=== PATIENT | male | born 1980 | race Native Hawaiian/Other Pacific Islander ===

== ENCOUNTER 2020-11-25 11:07 | Inpatient (IN) ==
[2020-11-25] MEDS ORDERED: CARVEDILOL 6.25 MG TABLET PO ONE (12:14)
[2020-11-25] MEDS ORDERED: LOSARTAN 50 MG TABLET PO ONE (12:15)
[2020-11-25] MEDS ORDERED: CHLORTHALIDONE 25 MG TABLET PO ONE (12:15)
--- NOTE | 2020-11-25 12:20 | Emergency Department Note ---
HPI General Chief complaint: Blood Pressure Problem Stated complaint: HTN/Edema Time Seen by Provider: 11/25/20 11:32 Source: patient Mode of arrival: ambulatory Limitations: no limitations History of Present Illness HPI Narrative: Narrative: Presents to room T2 for evaluation of lower extremity swelling and elevated blood pressure. The patient reports a past medical history of hypertension. He states he is recently moved to the area from [place]. He has a biomedical scientist at [facility] but has not seen them since last year. He reports that he has been out of his medication for blood pressure over 1 week. He states since that time his lower extremities have swollen bilaterally. He denies any pain. He denies any shortness of breath or chest discomfort. He denies any exertional dyspnea. The patient reports that he has had this happen once in the past when he ran out of his antihypertensive medication. He denies any headache. No visual changes. No hematuria. No focal motor weakness or sensory numbness. Related Data Home Medications Medication Instructions Recorded Confirmed aspirin 81 mg PO DAILY 11/25/20 11/25/20 atorvastatin 40 mg PO HS 11/25/20 11/25/20 carvedilol 6.25 mg PO BID 11/25/20 11/25/20 chlorthalidone 50 mg PO DAILY 11/25/20 11/25/20 losartan 50 mg PO DAILY 11/25/20 11/25/20 Allergies Allergy/AdvReac Type Severity Reaction Status Date / Time lisinopril AdvReac Difficulty Verified 11/25/20 11:13 Breathing Review of Systems ROS ROS Narrative: Narrative: All systems ED: reviewed and negative except as stated. [facility] Narrative Patient History Narrative: Narrative: Medical/Surgical/Family History All Active Problems (Updated 11/25/20 @ 16:47 by Paddy Jay MD) Hypertensive CHF (Acute) Edema of both lower extremities due to peripheral venous insufficiency (Acute) Cellulitis (Acute) Social History Smoking Status: Never smoker Exam Narrative Narrative: Narrative: General Limitations: no limitations General appearance: Present alert and in no apparent distress Head Head: Present atraumatic, normocephalic and normal inspection Eye Eye: Present normal appearance and EOMI; Absent conjunctival injection ENT ENT: Present normal exam and mucous membranes moist Neck Neck: Present normal inspection and trachea midline Respiratory Respiratory: Present normal lung sounds bilaterally; Absent respiratory distress Cardiovascular Cardiovascular: Present regular rate, normal rhythm and normal heart sounds Adbominal Abdominal: Present soft; Absent distention, tenderness, guarding and rebound Extremities Extremities: Present pedal edema and other (There is mild diffuse intermittent areas of erythema which may represent localized cellulitis versus effects of edema); Absent tenderness Back Back: Present normal inspection; Absent tenderness Neurological Neurological: Present alert, oriented X3 and CN II-XII intact; Absent motor sens ory deficit Psychiatric Psychiatric: Present normal affect and normal mood Skin Skin: Present warm (WNL) and dry; Absent rash Course Vital Signs Vital signs: Vital Signs Temperature 97.9 F 11/25/20 11:09 Pulse Rate 111 H 11/25/20 11:09 Respiratory Rate 22 11/25/20 11:09 Blood Pressure 216/151 11/25/20 11:09 Pulse Oximetry (%) 95 11/25/20 11:09 Temperature 97.9 F 11/25/20 11:09 Pulse Rate 79 11/25/20 18:02 Respiratory Rate 23 H 11/25/20 18:02 Blood Pressure 155/102 11/25/20 18:02 Pulse Oximetry (%) 97 11/25/20 18:02 [facility] Narrative Medical decision making narrative: Narrative: The patient presents for evaluation of lower extremity and scrotal swelling after being out of his antihypertensive medication for approximately a week and a half. The patient denies any chest pain or shortness of breath. On presentation the patient's blood pressure is extremely elevated but he is absent any symptoms suggestive of endorgan damage. The patient was given doses of his documented antihypertensive medication. Unfortunately his blood pressure did not significantly improve. The patient did have labs which included a D-dimer which was elevated. Ultrasounds of his bilateral lower extremity showed no evidence of DVT. The patient does have a slightly elevated creatinine at 1.7. It is unknown what his is and the patient does not know. The patient was given a dose of IV labetalol followed by a dose of IV Lasix and his blood pressure did significantly improve. The patient does have diffuse scattered areas of erythema on his lower extrem ities which may represent stasis dermatitis or cellulitis. The patient did receive a dose of IV antibiotics after blood cultures. I did discuss the case with Dr. Chapa, the hospitalist. He is requested a troponin which was normal. The patient's BNP was obtained and noted to be markedly elevated. Patient's chest x-ray does show moderate CHF. The EKG shows no evidence of acute injury or ischemia. As the patient's blood pressure has improved I do not believe he requires additional IV medication such as nicardipine at this time. The patient will benefit from admission for continued diuresis as well as further evaluation and treatment of his congestive heart failure and cellulitis. Lab Data Lab results reviewed: Yes I reviewed the patient's lab results. Result diagrams: 11/25/20 12:25 11/25/20 12:13 Labs: Lab Results 11/25/20 11/25/20 11/25/20 Range/Units 12:13 12:13 12:25 WBC 11.5 H (4.5-11.0) K/mcL RBC 5.09 (4.50-5.90) M/mcL Hgb 11.9 L (13.5-16.5) g/dL Hct 39.6 L (41.0-55.0) % MCV 77.8 L (80.0-100.0) fL MCH 23.4 L (26.0-34.0) pg MCHC 30.1 L (31.0-36.0) g/dL RDW 15.9 H (11.5-14.5) % Plt Count 363 (140-440) K/mcL MPV 9.5 (7.4-10.4) fL Neut % (Auto) 76.5 (38.0-78.0) % Lymph % (Auto) 12.5 L (15.0-49.0) % [place] % (Auto) 7.5 (1.0-12.0) % Eos % (Auto) 2.4 (0.0-7.0) % Baso % (Auto) 1.1 (0.0-2.0) % Lymph # (Auto) 1.44 L (1.50-4.80) K/mcL [place] # (Auto) 0.87 (0.10-0.90) K/mcL Eos # (Auto) 0.28 (0.00-0.70) K/mcL Baso # (Auto) 0.13 (0.00-0.20) K/mcL Absolute Neutrophils 8.82 H (1.80-8.00) K/mcL D-Dimer 3.80 H (0.27-0.50) ug/mL VBG Lactic Acid (0.5-2.0) mmol/L Sodium 136 (133-145) mmol/L Potassium 3.8 (3.3-5.1) mmol/L Chloride 100 (96-108) mmol/L Carbon Dioxide 26 (22-30) mmol/L Anion Gap 10.0 (8.0-16.0) BUN 17 (6-20) mg/dL Creatinine 1.7 H (0.7-1.2) mg/dL GFR Calculation 49 Glucose 122 H (70-105) mg/dL Calcium 8.8 (8.6-10.4) mg/dL Total Bilirubin 0.6 (0.1-1.0) mg/dL AST 39 (<40) U/L ALT 39 (<40) U/L Alkaline Phosphatase 108 (39-117) U/L Troponin T (<0.03) ng/mL NT-Pro-B Natriuret Pep (<125.0) pg/mL Total Protein 6.1 (5.9-8.4) gm/dL Albumin 3.2 (3.2-5.2) gm/dL Globulin 2.9 (2.2-3.7) gm/dL Albumin/Globulin Ratio 1.1 (1.0-2.3) TSH (0.27-5.01) uIU/mL 11/25/20 11/25/20 11/25/20 Range/Units 14:34 14:43 14:43 WBC (4.5-11.0) K/mcL RBC (4.50-5.90) M/mcL Hgb (13.5-16.5) g/dL Hct (41.0-55.0) % MCV (80.0-100.0) fL MCH (26.0-34.0) pg MCHC (31.0-36.0) g/dL RDW (11.5-14.5) % Plt Count (140-440) K/mcL MPV (7.4-10.4) fL Neut % (Auto) (38.0-78.0) % Lymph % (Auto) (15.0-49.0) % [place] % (Auto) (1.0-12.0) % Eos % (Auto) (0.0-7.0) % Baso % (Auto) (0.0-2.0) % Lymph # (Auto) (1.50-4.80) K/mcL [place] # (Auto) (0.10-0.90) K/mcL Eos # (Auto) (0.00-0.70) K/mcL Baso # (Auto) (0.00-0.20) K/mcL Absolute Neutrophils (1.80-8.00) K/mcL D-Dimer (0.27-0.50) ug/mL VBG Lactic Acid (0.5-2.0) mmol/L Sodium (133-145) mmol/L Potassium (3.3-5.1) mmol/L Chloride (96-108) mmol/L Carbon Dioxide (22-30) mmol/L Anion Gap (8.0-16.0) BUN (6-20) mg/dL Creatinine (0.7-1.2) mg/dL GFR Calculation Glucose (70-105) mg/dL Calcium (8.6-10.4) mg/dL Total Bilirubin (0.1-1.0) mg/dL AST (<40) U/L ALT (<40) U/L Alkaline Phosphatase (39-117) U/L Troponin T 0.02 (<0.03) ng/mL NT-Pro-B Natriuret Pep 3002.0 H (<125.0) pg/mL Total Protein (5.9-8.4) gm/dL Albumin (3.2-5.2) gm/dL Globulin (2.2-3.7) gm/dL Albumin/Globulin Ratio (1.0-2.3) TSH 2.66 (0.27-5.01) uIU/mL 11/25/20 Range/Units 15:09 WBC (4.5-11.0) K/mcL RBC (4.50-5.90) M/mcL Hgb (13.5-16.5) g/dL Hct (41.0-55.0) % MCV (80.0-100.0) fL MCH (26.0-34.0) pg MCHC (31.0-36.0) g/dL RDW (11.5-14.5) % Plt Count (140-440) K/mcL MPV (7.4-10.4) fL Neut % (Auto) (38.0-78.0) % Lymph % (Auto) (15.0-49.0) % [place] % (Auto) (1.0-12.0) % Eos % (Auto) (0.0-7.0) % Baso % (Auto) (0.0-2.0) % Lymph # (Auto) (1.50-4.80) K/mcL [place] # (Auto) (0.10-0.90) K/mcL Eos # (Auto) (0.00-0.70) K/mcL Baso # (Auto) (0.00-0.20) K/mcL Absolute Neutrophils (1.80-8.00) K/mcL D-Dimer (0.27-0.50) ug/mL VBG Lactic Acid 1.2 (0.5-2.0) mmol/L Sodium (133-145) mmol/L Potassium (3.3-5.1) mmol/L Chloride (96-108) mmol/L Carbon Dioxide (22-30) mmol/L Anion Gap (8.0-16.0) BUN (6-20) mg/dL Creatinine (0.7-1.2) mg/dL GFR Calculation Glucose (70-105) mg/dL Calcium (8.6-10.4) mg/dL Total Bilirubin (0.1-1.0) mg/dL AST (<40) U/L ALT (<40) U/L Alkaline Phosphatase (39-117) U/L Troponin T (<0.03) ng/mL NT-Pro-B Natriuret Pep (<125.0) pg/mL Total Protein (5.9-8.4) gm/dL Albumin (3.2-5.2) gm/dL Globulin (2.2-3.7) gm/dL Albumin/Globulin Ratio (1.0-2.3) TSH (0.27-5.01) uIU/mL ED POC Tests ED POC Tests: KEANU - Influenza A Negative KEANU - Influenza B Negative KEANU - SARS Antigen Negative Radiology Data Radiology results reviewed: Yes I reviewed the patient's radiology results. EKG Data EKG #1: EKG attestation: Yes I reviewed and interpreted this EKG. EKG results narrative: Normal sinus rhythm rate 73, normal ST segments, normal QRS, no ectopy CC TIME Critical Care Time Total Critical Care Time: 30 Attestation: Total critical heart Discharge Plan Patient/Caregiver Discharge Instructions Pt seen by POLE TRUCK DRIVER/PA only: No Clinical Impression: Hypertensive CHF, Edema of both lower extremities due to peripheral venous insufficiency, Cellulitis Patient Disposition: Xfer As Inpt ([facility]) Condition: Good Discharge Date/Time: 11/25/20 18:36 Discharge Location: [facility]
[2020-11-25 13:04] LABS: Basophils # (Auto) 0.13 K/mcL (0.00-0.20); Basophils % (Auto) 1.1 % (0.0-2.0); Eosinophils # (Auto) 0.28 K/mcL (0.00-0.70); Eosinophils % (Auto) 2.4 % (0.0-7.0); Hematocrit 39.6 % (41.0-55.0); Hemoglobin 11.9 g/dL (13.5-16.5); Lymphocytes # (Auto) 1.44 K/mcL (1.50-4.80); Lymphocytes % (Auto) 12.5 % (15.0-49.0); Mean Cell Volume 77.8 fL (80.0-100.0); Mean Corpuscular HGB Conc 30.1 g/dL (31.0-36.0); Mean Platelet Volume 9.5 fL (7.4-10.4); Monocytes # (Auto) 0.87 K/mcL (0.10-0.90); Monocytes % (Auto) 7.5 % (1.0-12.0); Neutrophils % (Auto) 76.5 % (38.0-78.0); Platelet Count 363 K/mcL (140-440); RBC 5.09 M/mcL (4.50-5.90); Red Cell Distribution Width 15.9 % (11.5-14.5); WBC 11.5 K/mcL (4.5-11.0)
[2020-11-25 13:29] LABS: ALT/SGPT 39 U/L (<40); AST/SGOT 39 U/L (<40); Albumin 3.2 gm/dL (3.2-5.2); Albumin/Globulin Ratio 1.1 (1.0-2.3); Alkaline Phosphatase 108 U/L (39-117); Bilirubin,Total 0.6 mg/dL (0.1-1.0); Blood Urea Nitrogen 17 mg/dL (6-20); Calcium 8.8 mg/dL (8.6-10.4); Carbon Dioxide 26 mmol/L (22-30); Chloride 100 mmol/L (96-108); Globulin 2.9 gm/dL (2.2-3.7); Glomerular Filtration Rate 49; Glucose 122 mg/dL (70-105)
[2020-11-25] MEDS ORDERED: LABETALOL 5 MG/ML ML IV ONE (14:17)
[2020-11-25] MEDS ORDERED: FUROSEMIDE 40 MG/4 ML VIAL IV ONE (14:19)
[2020-11-25] MEDS ORDERED: cefTRIAXone 1 GM VIAL IV ONE (14:31)
--- NOTE | 2020-11-25 14:38 | Ultrasound Report ---
CLINICAL INFORMATION: Bilateral leg swelling COMPARISON: None. FINDINGS: The entire deep venous system, both lower extremities, including the common femoral, superficial femoral, popliteal and paired trifurcation calf veins are easily compressible and show normal venous blood flow on color and spectral Doppler. No evidence of thrombus IMPRESSION: Negative exam - no evidence of deep vein thrombosis in both lower extremities. Interpreted and Authenticated by: Villa Mendoza 11/25/20
--- NOTE | 2020-11-25 15:08 | XRay Report ---
CLINICAL INFORMATION: htn urgency COMPARISON: None. FINDINGS: The heart is moderately enlarged. Mediastinum is unremarkable. Pulmonary vessels are mildly distended. There is mild patchy airspace disease in both mid and lower lungs which either infiltrate or edema. No effusion IMPRESSION: Mild CHF or volume overload. Consider BNP correlation Interpreted and Authenticated by: Villa Mendoza 11/25/20
--- NOTE | 2020-11-25 17:39 | Internal Med History&Physical ---
HPI History of Present Illness Patient information: Note initiated : 11/25/20 at 5:38 pm Service Date, if different from initiated Date: [] Patient: Antoine Chavez 40 y/o M admitted on for HTN/Edema. Chief Complaint: Worsening edema History of present illness: Mr. Chavez is a 40 year old M with a history of hypertension, hypercholesterolemia, congestive heart failure who presents to the ED with increasing lower extremity edema mild dyspnea and abdominal bloating. Patient has a history of hypertension and heart failure. He was hospitalized at [facility] in [place] in 2019, presented with blood pressures in the 190s/160s. He was seen by clipping marker and have blood pressure medications titrated. He is currently on carvedilol, losartan and chlorthalidone. He moved to the [facility] from [place] recently, has not established [facility]. He ran out of meds about 2 weeks ago. He apparently had not called his clipping marker office for refill, though he tells me he believes the clipping marker would gladly have filled them. He presents with about 1 week of worsening lower extremity edema, mild dyspnea and his abdomen feeling tight and complaining of early satiety. He is now sleeping with his head of bed elevated, because he gets a pounding in his head when he lay supine when his blood pressure is not controlled. In the emergency department, initial blood pressure was 216/151. He received his usual home medications, subsequently received labetalol with pressures dropping into the 140-150/100s. Chest radiograph shows pulmonary congestion, he has significant lower extremity and scrotal edema as well as anasarca to the abdomen. Troponin is negative, BNP is 3000. EKG shows no injury pattern. Is being admitted for treatment of hypertensive urgency and acute congestive heart failure. Patient denies any headache, vision changes, blurry vision. He has had a mild sore throat a few days ago, that is mostly resolved. Mild dyspnea, no cough or sputum production. No chest pain/tightness/squeezing/pressure. Lower extremity edema as noted above. Orthopnea as noted above. When he bends over over the last week or so he gets nauseated, which is new. No emesis, no abdominal pain, no diarrhea. No dysuria, he continues to have good urine output. No joint swelling. No bruising. He has chronic rash on the back of his hands which is worsened recently. No heat or cold intolerance. Review of Systems All systems: reviewed and no additional remarkable complaints except as stated PFSH PFSH All Active Problems (Updated 11/25/20 @ 21:43 by Cathryn Patricio MD) Hypertensive CHF (Acute) Edema of both lower extremities due to peripheral venous insufficiency (Acute) Cellulitis (Acute) Medical History (Updated 11/25/20 @ 21:43 by Cathryn Patricio MD) Hypercholesterolemia Hypertension Surgical History (Updated 11/25/20 @ 21:43 by Cathryn Patricio MD) No significant past surgical history Family History (Updated 11/25/20 @ 21:46 by Cathryn Patricio MD) Mother Hypertension Coronary artery disease of myocardial infarction Father Coronary artery disease Social History (Updated 11/25/20 @ 21:46 by Cathryn Patricio MD) smoking status: Never smoker alcohol intake frequency: does not drink MEDS/ALLERGIES Home Medications and Allergies Home Medications Medication Instructions Recorded Confirmed Type aspirin 81 mg PO DAILY 11/25/20 11/25/20 History atorvastatin 40 mg PO HS 11/25/20 11/25/20 History carvedilol 6.25 mg PO BID 11/25/20 11/25/20 History chlorthalidone 50 mg PO DAILY 11/25/20 11/25/20 History losartan 50 mg PO DAILY 11/25/20 11/25/20 History Allergies Allergy/AdvReac Type Severity Reaction Status Date / Time lisinopril AdvReac Difficulty Verified 11/25/20 11:13 Breathing EXAM Constitutional Vitals: Temp Pulse Resp BP Pulse Ox 97.9 F 81 20 144/94 98 11/25/20 11:09 11/25/20 16:42 11/25/20 16:42 11/25/20 16:42 11/25/20 16:42 GENERAL: Alert, oriented, in no acute distress. Cooperative, appears stated age. HEENT: Atraumatic, pupils equal at 3 mm, conjunctiva clear, no scleral icterus. Hearing grossly intact. Oropharynx with moist mucous membranes, tongue midline. NECK: Supple without meningismus RESPIRATORY: Faint bibasilar crackles, otherwise clear, no wheezes, respiratory effort is unlabored. CARDIOVASCULAR: Regular rate and rhythm, S4 gallop present, no murmur. 4+ peripheral edema with anasarca to the lower abdominal wall. Neck veins are not able to be viewed due to body habitus. Carotid pulses 2+ without bruit. GI: Abdomen obese soft, nontender, no guarding or rebound. No bruits appreciated. Bowel sounds are present. : Scrotal edema. MUSCULOSKELETAL: No joint erythema or swelling, normal range of motion in all extremities. SKIN: Scaly plaques on the dorsum of the proximal fingers and hand bilaterally. Areas of erythema, some with weeping in the distal bilateral lower extremities. NEUROLOGIC: Cranial nerves II through XII grossly intact. Muscle mass normal. Strength 5/5 in the upper and lower extremities. Sensation intact to light touch bilaterally. PSYCHIATRIC: Alert, oriented x3, normal mood and affect, normal insight. DATA Data Completed and Pending Labs: Labs from last 24 hours 11/25/20 11/25/20 11/25/20 15:09 14:43 14:34 WBC RBC Hgb Hct MCV MCH MCHC RDW Plt Count MPV Neut % (Auto) Lymph % (Auto) [place] % (Auto) Eos % (Auto) Baso % (Auto) Lymph # (Auto) [place] # (Auto) Eos # (Auto) Baso # (Auto) Absolute Neutrophils D-Dimer VBG Lactic Acid 1.2 Sodium Potassium Chloride Carbon Dioxide Anion Gap BUN Creatinine GFR Calculation Glucose Calcium Total Bilirubin AST ALT Alkaline Phosphatase Troponin T 0.02 NT-Pro-B Natriuret Pep 3002.0 H Total Protein Albumin Globulin Albumin/Globulin Ratio 11/25/20 11/25/20 11/25/20 12:25 12:13 12:13 WBC 11.5 H RBC 5.09 Hgb 11.9 L Hct 39.6 L MCV 77.8 L MCH 23.4 L MCHC 30.1 L RDW 15.9 H Plt Count 363 MPV 9.5 Neut % (Auto) 76.5 Lymph % (Auto) 12.5 L [place] % (Auto) 7.5 Eos % (Auto) 2.4 Baso % (Auto) 1.1 Lymph # (Auto) 1.44 L [place] # (Auto) 0.87 Eos # (Auto) 0.28 Baso # (Auto) 0.13 Absolute Neutrophils 8.82 H D-Dimer 3.80 H VBG Lactic Acid Sodium 136 Potassium 3.8 Chloride 100 Carbon Dioxide 26 Anion Gap 10.0 BUN 17 Creatinine 1.7 H GFR Calculation 49 Glucose 122 H Calcium 8.8 Total Bilirubin 0.6 AST 39 ALT 39 Alkaline Phosphatase 108 Troponin T NT-Pro-B Natriuret Pep Total Protein 6.1 Albumin 3.2 Globulin 2.9 Albumin/Globulin Ratio 1.1 Impressions Impressions: EKG: Sinus rhythm at [address] changes Imaging and Cardiology Chest x-ray: Status: image reviewed by me Additional comments: Mild CHF or volume overload. Consider BNP correlation Venous US: Additional comments: Impression: Negative examno evidence of deep vein thrombosis in both lower extremities. A/P Narrative A/P Narrative: 40-year-old male with a history of hypertensive emergency in 2019, which point he was diagnosed with high blood pressure presents with increasing dyspnea and edema after being out of medications for 2 weeks. #Hypertensive urgency: Patient presents with markedly elevated blood pressure. After initial dose of his home meds plus labetalol, that has improved. -Etiology appears to be not refilling his medications and not taking them for 2 weeks -Patient has congestive heart failure, likely related to blood pressure, no evidence of ACS, stroke -No old records, unclear what baseline creatinine is, could have some renal insufficiency from hypertensive urgency #Acute congestive heart failure: Likely hypertension related heart failure. -Suspect he may have LVH with an S4 to auscultation. #Hypercholesterolemia: On atorvastatin #Chronic lower extremity edema: On aspirin for prophylaxis against VTE Plan: * Inpatient admission * Continue home meds * Labetalol as needed for hypertension * We will accept blood pressure 160/100 overnight as he has had prolonged hypertension * Check urinalysis for evidence of active sediment * Check urine drug screen for evidence of stimulants * Diuresis * Follow intake and output * Follow renal function * Check echocardiogram * Obtain records from [facility] Prophylaxis: Lovenox CODE STATUS: Full code
[2020-11-25] MEDS ORDERED: ACETAMINOPHEN 325 MG TABLET PO PRN (19:14)
[2020-11-25] MEDS ORDERED: LACTULOSE 20 GM/30 ML ORAL.SOL PO PRN (19:14)
[2020-11-25] MEDS ORDERED: SENNOSIDES 1 TABLET PO PRN (19:14)
[2020-11-25] MEDS ORDERED: ONDANSETRON 4 MG/2 ML VIAL IV PRN (19:14)
[2020-11-25 20:07] LABS: Thyroid Stimulating Hormone 2.66 uIU/mL (0.27-5.01)
[2020-11-25] MEDS: LABETALOL 5 MG/ML ML IV PRN ×2 (20:26→23:18)
[2020-11-25] MEDS: 0.9 % SODIUM CHLORIDE 10 ML SYRINGE IV SCH (21:25)
[2020-11-25] MEDS: ATORVASTATIN 40 MG TABLET PO SCH (21:25)
[2020-11-25 22:23] LABS: Amphetamine Screen,Urine None detected; Barbiturate Screen,Urine None detected; Benzodiazepines Screen,Urine None detected; Cannabinoid Screen,Urine None detected; Cocaine Screen,Urine None detected; Opiate Screen,Urine None detected; Oxycodone, Urine Screen None detected; Phencyclidine Screen,Urine None detected
[2020-11-25 22:29] LABS: Appearance,Urine CLEAR (Clear); Bilirubin,Urine Negative (Negative); Color,Urine STRAW; Culture Indicated,Urine No; Glucose,Urine (UA) Negative (Negative); Ketones,Urine Negative (Negative); Leukocyte Esterase,Urine Negative /ug (Negative); Mucus,Urine FEW /hpf; Nitrate,Urine Negative (Negative); Protein,Urine 100 mg/dL (Negative); Specific Gravity,Urine 1.006 (1.000-1.035); Urine Blood Negative (Negative); Urine RBC 1 /hpf (0-3); Urine Squamous Epithelial Cell 0 /hpf (0-4); Urine WBC 1 /hpf (0-4); Urobilinogen,Urine Negative
[2020-11-26] MEDS: 0.9 % SODIUM CHLORIDE 10 ML SYRINGE IV SCH ×3 (06:13→21:24)
[2020-11-26 07:59] LABS: Blood Urea Nitrogen 17 mg/dL (6-20); Calcium 8.8 mg/dL (8.6-10.4); Carbon Dioxide 26 mmol/L (22-30); Chloride 100 mmol/L (96-108); Glomerular Filtration Rate 53; Glucose 73 mg/dL (70-105)
[2020-11-26] MEDS: FUROSEMIDE 40 MG/4 ML VIAL IV SCH ×2 (08:20→16:58)
[2020-11-26] MEDS: LABETALOL 5 MG/ML ML IV PRN ×2 (08:20→14:46)
[2020-11-26] MEDS: ENOXAPARIN 40 MG/0.4 ML SYRINGE SQ SCH (08:20)
[2020-11-26] MEDS: ASPIRIN 81 MG TAB.CHEW PO SCH (08:21)
[2020-11-26] MEDS: LOSARTAN 50 MG TABLET PO SCH (10:47)
[2020-11-26] MEDS: CARVEDILOL 6.25 MG TABLET PO SCH ×2 (10:47→16:59)
--- NOTE | 2020-11-26 11:09 | Internal Med Progress Note ---
SUBJECTIVE Subjective Patient information: Note initiated : 11/26/20 at 11:05 am Service Date, if different from initiated Date: [] Patient: Antoine Chavez 40 y/o M admitted on 11/25/20 for HTN/Edema. Chief Complaint: [] Interval history: 11/25 Mr. Chavez is a 40 year old M with a history of hypertension, hypercholesterolemia, congestive heart failure who presents to the ED with increasing lower extremity edema mild dyspnea and abdominal bloating. Patient has a history of hypertension and heart failure. He was hospitalized at [facility] in [place] in 2018, presented with blood pressures in the 190s/160s. He was seen by rail director and have blood pressure medications titrated. He is currently on carvedilol, losartan and chlorthalidone. He moved to the [facility] from [place] recently, has not established care here. He ran out of meds about 2 weeks ago. He apparently had not called his rail director office for refill, though he tells me he believes the rail director would gladly have filled them. He presents with about 1 week of worsening lower extremity edema, mild dyspnea and his abdomen feeling tight and complaining of early satiety. He is now sleeping with his head of bed elevated, because he gets a pounding in his head when he lay supine when his blood pressure is not controlled. In the emergency department, initial blood pressure was 216/151. He received his usual home medications, subsequently received labetalol with pressures dropping into the 140-150/100s. Chest radiograph shows pulmonary congestion, he has significant lower extremity and scrotal edema as well as anasarca to the abdomen. Troponin is negative, BNP is 3000. EKG shows no injury pattern. Is being admitted for treatment of hypertensive urgency and acute congestive heart failure. 11/26 Feeling improved today, dyspnea has resolved. Blood pressure with better control. Still with significant volume overload. Requested old records from [facility]. Pertinent ROS: No chest pain, no cough or sputum. Dyspnea improved. Edema slightly improved. Constitutional Vitals: Vital Signs Temp Pulse Resp BP Pulse Ox 97.1 F 82 11 L 154/111 100 11/26/20 08:00 11/26/20 08:07 11/26/20 06:00 11/26/20 08:00 11/26/20 08:07 Period Temp Pulse Resp BP Sys/Aguilera Pulse Ox Last 24 Hr 97.1 F-98.2 F 68-121 11-25 118-216/75-160 94-100 Intake and Output 11/25/20 11/26/20 11/26/20 21:59 05:59 13:59 Intake Total 800 800 Output Total 3475 600 1250 Balance -3475 200 -450 Weight 374 lb 4.8 oz GENERAL: Sitting in bed no acute distress RESPIRATORY: Clear, no rales, unlabored CARDIOVASCULAR: Regular, soft S4, anasarca to lower abdominal wall ABDOMEN: Obese, soft, nontender EXTREMITIES: 4+ lower extremity edema, patches of erythema, improved NEURO: Alert, oriented x3, moves all extremities equally Intake & Output: Intake & Output 11/25/20 11/26/20 11/26/20 21:59 05:59 13:59 Intake Total 800 800 Output Total 3475 600 1250 Balance -3475 200 -450 Weight 374 lb 4.8 oz Intake: Oral 800 800 Output: Void Amount 3475 600 1250 Other: Meal Dinner Breakfast Percent of Meal Consumed 100% 100% Feeding Ability Independent Urine Appearance Clear Clear Urine Color Bright Yellow Bright Yellow Stool Color Brown Stool Consistency Soft Formed # Voids 1 # Bowel Movements 1 OBJ DATA Labs CBC & Chem 7: 11/25/20 12:25 11/26/20 05:12 Labs: Abnormal Lab Results 11/26/20 11/25/20 11/25/20 05:12 19:14 14:34 WBC Hgb Hct MCV MCH MCHC RDW Lymph % (Auto) Lymph # (Auto) Absolute Neutrophils D-Dimer Potassium 3.2 L Creatinine 1.6 H Glucose NT-Pro-B Natriuret Pep 3002.0 H Urine Protein 100 A Urine Mucus Few A 11/25/20 11/25/20 11/25/20 12:25 12:13 12:13 WBC 11.5 H Hgb 11.9 L Hct 39.6 L MCV 77.8 L MCH 23.4 L MCHC 30.1 L RDW 15.9 H Lymph % (Auto) 12.5 L Lymph # (Auto) 1.44 L Absolute Neutrophils 8.82 H D-Dimer 3.80 H Potassium Creatinine 1.7 H Glucose 122 H NT-Pro-B Natriuret Pep Urine Protein Urine Mucus Meds: Medications Acetaminophen (Acetaminophen 325 Mg Tablet) 650 mg PO Q6HP PRN; Protocol PRN Reason: Per Pain Protocol/Fever > 101 Aspirin (Aspirin 81 Mg Tab.Chew) 81 mg PO DAILY [facility] Last Admin: 11/26/20 08:21 Dose: 81 mg Documented by: Atorvastatin Calcium (Atorvastatin 40 Mg Tablet) 40 mg PO HS [facility] Last Admin: 11/25/20 21:25 Dose: 40 mg Documented by: Carvedilol (Carvedilol 6.25 Mg Tablet) 6.25 mg PO BIDCC [facility] Last Admin: 11/26/20 10:47 Dose: 6.25 mg Documented by: Enoxaparin Sodium (Enoxaparin 40 Mg/0.4 Ml Syringe) 40 mg SQ DAILY [facility] Last Admin: 11/26/20 08:20 Dose: 40 mg Documented by: Furosemide (Furosemide 40 Mg/4 Ml Vial) 40 mg IV BIDD [facility] Last Admin: 11/26/20 08:20 Dose: 40 mg Documented by: Labetalol HCl (Labetalol 5 Mg/Ml Ml) 10 mg IV Q2HP PRN PRN Reason: Hypertension Last Admin: 11/26/20 08:20 Dose: 10 mg Documented by: Lactulose (Lactulose 20 Gm/30 Ml Oral.Helena) 10 gm PO DAILYP PRN PRN Reason: Constipation Losartan Potassium (Losartan 50 Mg Tablet) 50 mg PO DAILY [facility] Last Admin: 11/26/20 10:47 Dose: 50 mg Documented by: Ondansetron HCl (Ondansetron 4 Mg/2 Ml Vial) 4 mg IV Q4HP PRN; Protocol PRN Reason: Nausea And Vomiting Senna (Sennosides 1 Tablet) 2 tab PO HSP PRN PRN Reason: Constipation Sodium Chloride (0.9 % Sodium Chloride 10 Ml Syringe) 10 ml IV Q8 [facility] Last Admin: 11/26/20 06:13 Dose: 10 ml Documented by: A/P Narrative A/P Narrative: 40-year-old male with a history of hypertensive emergency in 2019, which point he was diagnosed with high blood pressure presents with increasing dyspnea and edema after being out of medications for 2 weeks. #Hypertensive urgency: Patient presents with markedly elevated blood pressure. After initial dose of his home meds plus labetalol, that has improved. -Etiology appears to be not refilling his medications and not taking them for 2 weeks -Patient has congestive heart failure, likely related to blood pressure, no evidence of ACS, stroke -No old records, unclear what baseline creatinine is, could have some renal insufficiency from hypertensive urgency -Urinalysis with bland sediment #Acute congestive heart failure: Likely hypertension related heart failure. -Suspect he may have LVH with an S4 to auscultation. #Cellulitis: Right erythema in patches on bilateral lower extremities, worse on the left. Received antibiotics in the ED #Hypercholesterolemia: On atorvastatin #Chronic lower extremity edema: On aspirin for prophylaxis against VTE Plan: * Continue home carvedilol and losartan * Hold home chlorthalidone while being diuresed * Labetalol as needed for hypertension * Follow-up urine drug screen for evidence of stimulants * Continued diuresis with twice daily furosemide * Follow intake and output * Follow renal function * Follow-up echocardiogram * Obtain records from [facility] * Continue ceftriaxone for cellulitis Prophylaxis: Lovenox CODE STATUS: Full code QUALITY VTE Deep Vein Thrombosis/Pulmonary Embolism Present on Admission: No
[2020-11-26] MEDS: cefTRIAXone 1 GM VIAL IV SCH (12:48)
[2020-11-26] MEDS: POTASSIUM CHLORIDE 20 MEQ TABLET PO PRN (13:38)
[2020-11-26] MEDS: ATORVASTATIN 40 MG TABLET PO SCH (21:21)
[2020-11-27] MEDS: 0.9 % SODIUM CHLORIDE 10 ML SYRINGE IV SCH ×5 (00:12→20:45)
[2020-11-27] MEDS: LABETALOL 5 MG/ML ML IV PRN ×6 (00:13→22:05)
[2020-11-27 07:45] LABS: ALT/SGPT 32 U/L (<40); AST/SGOT 28 U/L (<40); Albumin 3.4 gm/dL (3.2-5.2); Albumin/Globulin Ratio 1.2 (1.0-2.3); Alkaline Phosphatase 98 U/L (39-117); Bilirubin,Direct < 0.2 mg/dL (0-0.3); Bilirubin,Total 0.6 mg/dL (0.1-1.0); Blood Urea Nitrogen 18 mg/dL (6-20); Calcium 8.9 mg/dL (8.6-10.4); Carbon Dioxide 28 mmol/L (22-30); Chloride 98 mmol/L (96-108); Globulin 2.9 gm/dL (2.2-3.7); Glomerular Filtration Rate 53; Glucose 75 mg/dL (70-105); Lactate Dehydrogenase 262 U/L (135-225); Phosphorous 4.3 mg/dL (2.5-4.5); Triglycerides 84 mg/dL (<150); Uric Acid 11.3 mg/dL (2.5-8.0)
[2020-11-27] MEDS: FUROSEMIDE 40 MG/4 ML VIAL IV SCH ×2 (08:21→16:09)
[2020-11-27] MEDS: CARVEDILOL 6.25 MG TABLET PO SCH ×2 (08:22→17:42)
[2020-11-27] MEDS: ENOXAPARIN 40 MG/0.4 ML SYRINGE SQ SCH (08:22)
[2020-11-27] MEDS: LOSARTAN 50 MG TABLET PO SCH (08:22)
[2020-11-27] MEDS: ASPIRIN 81 MG TAB.CHEW PO SCH (08:22)
[2020-11-27] MEDS: cefTRIAXone 1 GM VIAL IV SCH (09:20)
[2020-11-27] MEDS: POTASSIUM CHLORIDE 20 MEQ TABLET PO PRN (09:28)
--- NOTE | 2020-11-27 13:43 | Internal Med Progress Note ---
SUBJECTIVE Subjective Patient information: Note initiated : 11/27/20 at 1:38 pm Service Date, if different from initiated Date: [] Patient: Antoine Chavez a 40 y/o M admitted on 11/25/20 for HTN/Edema. Chief Complaint: [] Interval history: 11/25 Mr. Chavez is a 40 year old M with a history of hypertension, hypercholesterolemia, congestive heart failure who presents to the ED with increasing lower extremity edema mild dyspnea and abdominal bloating. Patient has a history of hypertension and heart failure. He was hospitalized at [facility] in [place] in 2018, presented with blood pressures in the 190s/160s. He was seen by cleaner and presser and have blood pressure medications titrated. He is currently on carvedilol, losartan and chlorthalidone. He moved to the [facility] from [place] recently, has not established care here. He ran out of meds about 2 weeks ago. He apparently had not called his cleaner and presser office for refill, though he tells me he believes the cleaner and presser would gladly have filled them. He presents with about 1 week of worsening lower extremity edema, mild dyspnea and his abdomen feeling tight and complaining of early satiety. He is now sleeping with his head of bed elevated, because he gets a pounding in his head when he lay supine when his blood pressure is not controlled. In the emergency department, initial blood pressure was 216/151. He received his usual home medications, subsequently received labetalol with pressures dropping into the 140-150/100s. Chest radiograph shows pulmonary congestion, he has significant lower extremity and scrotal edema as well as anasarca to the abdomen. Troponin is negative, BNP is 3000. EKG shows no injury pattern. Is being admitted for treatment of hypertensive urgency and acute congestive heart failure. 11/26 Feeling improved today, dyspnea has resolved. Blood pressure with better control. Still with significant volume overload. Requested old records from [facility]. 11/27-patient doing well. Systolics much improved on resumption of home medication including losartan/Coreg and chlorthalidone. Reviewed records from [facility] with EF 40%. Likely discharge in 24 hours pending clinical improvement. Constitutional Vitals: Vital Signs Temp Pulse Resp BP Pulse Ox 98.1 F 78 22 139/100 98 11/27/20 12:01 11/27/20 12:06 11/27/20 12:06 11/27/20 12:01 11/27/20 12:06 Period Temp Pulse Resp BP Sys/[place]ilera Pulse Ox Last 24 Hr 97.4 F-98.4 F 66-79 15-23 124-163/78-117 90-100 Intake and Output 11/26/20 11/27/20 11/27/20 21:59 05:59 13:59 Intake Total 600 810 830 Output Total 2645 750 975 Balance -2045 60 -145 Weight 168.192 kg alert oriented Nonlabored breathing No anxiety No lymphedema Intake & Output: Intake & Output 11/26/20 11/27/20 11/27/20 21:59 05:59 13:59 Intake Total 600 810 830 Output Total 2645 750 975 Balance -2045 60 -145 Weight 168.192 kg Intake: Oral 600 810 830 Output: Void Amount 2645 750 975 Other: Meal Breakfast Percent of Meal Consumed 100% Feeding Ability Independent Urine Appearance Clear Clear Clear Urine Color Bright Yellow Pale Pale Urine Odor Normal Normal Normal # Bowel Movements 1 1 OBJ DATA Labs CBC & Chem 7: 11/25/20 12:25 11/27/20 05:02 Labs: Abnormal Lab Results 11/27/20 11/26/20 11/25/20 05:02 05:12 19:14 WBC Hgb Hct MCV MCH MCHC RDW Lymph % (Auto) Lymph # (Auto) Absolute Neutrophils D-Dimer Potassium 3.1 L 3.2 L Creatinine 1.6 H 1.6 H Glucose Uric Acid 11.3 H Lactate Dehydrogenase 262 H NT-Pro-B Natriuret Pep Urine Protein 100 A Urine Mucus Few A 11/25/20 11/25/20 11/25/20 14:34 12:25 12:13 WBC 11.5 H Hgb 11.9 L Hct 39.6 L MCV 77.8 L MCH 23.4 L MCHC 30.1 L RDW 15.9 H Lymph % (Auto) 12.5 L Lymph # (Auto) 1.44 L Absolute Neutrophils 8.82 H D-Dimer Potassium Creatinine 1.7 H Glucose 122 H Uric Acid Lactate Dehydrogenase NT-Pro-B Natriuret Pep 3002.0 H Urine Protein Urine Mucus 11/25/20 12:13 WBC Hgb Hct MCV MCH MCHC RDW Lymph % (Auto) Lymph # (Auto) Absolute Neutrophils D-Dimer 3.80 H Potassium Creatinine Glucose Uric Acid Lactate Dehydrogenase NT-Pro-B Natriuret Pep Urine Protein Urine Mucus Meds: Medications Acetaminophen (Acetaminophen 325 Mg Tablet) 650 mg PO Q6HP PRN; Protocol PRN Reason: Per Pain Protocol/Fever > 101 Aspirin (Aspirin 81 Mg Tab.Chew) 81 mg PO DAILY [facility] Last Admin: 11/27/20 08:22 Dose: 81 mg Documented by: Atorvastatin Calcium (Atorvastatin 40 Mg Tablet) 40 mg PO HS [facility] Last Admin: 11/26/20 21:21 Dose: 40 mg Documented by: Carvedilol (Carvedilol 6.25 Mg Tablet) 6.25 mg PO BIDCC [facility] Last Admin: 11/27/20 08:22 Dose: 6.25 mg Documented by: Ceftriaxone Sodium (Ceftriaxone 1 Gm Vial) 1 gm IV Q24H [facility]; Protocol Last Admin: 11/27/20 09:20 Dose: 1 gm Documented by: Enoxaparin Sodium (Enoxaparin 40 Mg/0.4 Ml Syringe) 40 mg SQ DAILY [facility] Last Admin: 11/27/20 08:22 Dose: 40 mg Documented by: Furosemide (Furosemide 40 Mg/4 Ml Vial) 40 mg IV BIDD [facility] Last Admin: 11/27/20 08:21 Dose: 40 mg Documented by: Labetalol HCl (Labetalol 5 Mg/Ml Ml) 10 mg IV Q2HP PRN PRN Reason: Hypertension Last Admin: 11/27/20 08:21 Dose: 10 mg Documented by: Lactulose (Lactulose 20 Gm/30 Ml Oral.[place]) 10 gm PO DAILYP PRN PRN Reason: Constipation Losartan Potassium (Losartan 50 Mg Tablet) 50 mg PO DAILY [facility] Last Admin: 11/27/20 08:22 Dose: 50 mg Documented by: Ondansetron HCl (Ondansetron 4 Mg/2 Ml Vial) 4 mg IV Q4HP PRN; Protocol PRN Reason: Nausea And Vomiting Potassium Chloride (Potassium Chloride 20 Meq Tablet) 40 meq PO UD PRN PRN Reason: Potssium is 3-3.5 Last Admin: 11/27/20 09:28 Dose: 40 meq Documented by: Senna (Sennosides 1 Tablet) 2 tab PO HSP PRN PRN Reason: Constipation Sodium Chloride (0.9 % Sodium Chloride 10 Ml Syringe) 10 ml IV Q8 [facility] Last Admin: 11/27/20 04:52 Dose: 10 ml Documented by: A/P Narrative A/P Narrative: 40-year-old male with a history of hypertensive emergency in 2019, which point he was diagnosed with high blood pressure presents with increasing dyspnea and edema after being out of medications for 2 weeks. #Hypertensive urgency: Patient presents with markedly elevated blood pressure. After initial dose of his home meds plus labetalol, that has improved. -Etiology appears to be not refilling his medications and not taking them for 2 weeks -Patient has history of systolic CHF with last EF 40%, likely related to blood pressure, no evidence of ACS, stroke -No old records, unclear what baseline creatinine is, could have some renal insufficiency from hypertensive urgency -Urinalysis with bland sediment #Acute decompensated heart failure mixed systolic/diastolic: EF 42% as of 06/27/grade 3 diastolic dysfunction #Cellulitis: Right erythema in patches on bilateral lower extremities, worse on the left. On Rocephin #Hypercholesterolemia: On atorvastatin #Chronic lower extremity edema: On aspirin for prophylaxis against VTE Plan: * Continue home dose antihypertensives * Continued diuresis with twice daily furosemide * Continue ceftriaxone for cellulitis * Recommend outpatient follow-up with cardiology on discharge Prophylaxis: Lovenox CODE STATUS: Full code Time Spent With Patient Time: Total time spent is greater than 50% in coordination of care (as documented) at patient's floor/unit and/or counseling patient: QUALITY VTE Deep Vein Thrombosis/Pulmonary Embolism Present on Admission: No
[2020-11-27] MEDS: ATORVASTATIN 40 MG TABLET PO SCH (20:45)
[2020-11-28] MEDS: LABETALOL 5 MG/ML ML IV PRN ×4 (00:13→12:33)
[2020-11-28] MEDS: 0.9 % SODIUM CHLORIDE 10 ML SYRINGE IV SCH (05:22)
[2020-11-28 07:06] LABS: ALT/SGPT 28 U/L (<40); AST/SGOT 25 U/L (<40); Albumin 3.3 gm/dL (3.2-5.2); Albumin/Globulin Ratio 1.1 (1.0-2.3); Alkaline Phosphatase 98 U/L (39-117); Bilirubin,Direct 0.2 mg/dL (<0.3); Bilirubin,Total 0.5 mg/dL (0.1-1.0); Blood Urea Nitrogen 19 mg/dL (6-20); Calcium 8.4 mg/dL (8.6-10.4); Carbon Dioxide 29 mmol/L (22-30); Chloride 97 mmol/L (96-108); Glomerular Filtration Rate 57; Glucose 75 mg/dL (70-105); Lactate Dehydrogenase 260 U/L (135-225); Phosphorous 4.4 mg/dL (2.5-4.5); Triglycerides 72 mg/dL (<150); Uric Acid 11.4 mg/dL (2.5-8.0)
[2020-11-28] MEDS: FUROSEMIDE 40 MG/4 ML VIAL IV SCH (08:52)
[2020-11-28] MEDS: cefTRIAXone 1 GM VIAL IV SCH (08:52)
[2020-11-28] MEDS: ASPIRIN 81 MG TAB.CHEW PO SCH (08:52)
[2020-11-28] MEDS: CARVEDILOL 6.25 MG TABLET PO SCH (08:53)
[2020-11-28] MEDS: LOSARTAN 50 MG TABLET PO SCH (08:53)
[2020-11-28] MEDS: ENOXAPARIN 40 MG/0.4 ML SYRINGE SQ SCH (08:53)
[2020-11-28] MEDS: POTASSIUM CHLORIDE 20 MEQ TABLET PO PRN (10:37)
--- NOTE | 2020-11-28 11:28 | Discharge Summary ---
Discharge Provider Provider Patient information: Note initiated : 11/28/20 at 11:27 am Service Date, if different from initiated Date: [] Patient: Antoine Chavez 40 y/o M admitted on 11/25/20 for HTN/Edema. Discharge diagnosis #Hypertensive urgency: Patient presents with markedly elevated blood pressure. After initial dose of his home meds plus labetalol,currently clinically resolved and back on home medications -Etiology appears to be not refilling his medications and not taking them for 2 weeks -Patient has history of systolic CHF with last EF 40%, likely related to blood pressure, no evidence of ACS, stroke -No old records, unclear what baseline creatinine is, could have some renal insufficiency from hypertensive urgency -Urinalysis with bland sediment #Acute decompensated heart failure mixed systolic/diastolic: EF 42% as of 06/27/grade 3 diastolic dysfunction #Cellulitis: Right erythema in patches on bilateral lower extremities, clinically improved on antibiotics. #Hypercholesterolemia: On atorvastatin #Chronic lower extremity edema: On aspirin for prophylaxis against VTE Brief hospital course Mr. Chavez is a 40 year old M with a history of hypertension, hypercholesterolemia, congestive heart failure who presents to the ED with increasing lower extremity edema mild dyspnea and abdominal bloating. Patient has a history of hypertension and heart failure. He was hospitalized at [facility] in [place] in 2019, presented with blood pressures in the 190s/160s. He was seen by russet repairer and have blood pressure medications titrated. He is currently on carvedilol, losartan and chlorthalidone. He moved to the [facility] from [place] recently, has not established care here. He ran out of meds about 2 weeks ago. He apparently had not called his russet repairer office for refill, though he tells me he believes the russet repairer would gladly have filled them. He presents with about 1 week of worsening lower extremity edema, mild dyspnea and his abdomen feeling tight and complaining of early satiety. He is now sleeping with his head of bed elevated, because he gets a pounding in his head when he lay supine when his blood pressure is not controlled. In the emergency department, initial blood pressure was 216/151. He received his usual home medications, subsequently received labetalol with pressures dropping into the 140-150/100s. Chest radiograph shows pulmonary congestion, he has significant lower extremity and scrotal edema as well as anasarca to the abdomen. Troponin is negative, BNP is 3000. EKG shows no injury pattern. Is being admitted for treatment of hypertensive urgency and acute congestive heart failure. 11/26 Feeling improved today, dyspnea has resolved. Blood pressure with better control. Still with significant volume overload. Requested old records from [facility]. 11/27-patient doing well. Systolics much improved on resumption of home medication including losartan/Coreg and chlorthalidone. Reviewed records from [facility] with EF 40%. Likely discharge in 24 hours pending clinical improvement. 11/28-patient doing well. No overnight events. Systolics around 150. Tolerating home medications well. We will continue follow-up with primary care physician/cardiology as outpatient. Discharging home with advised as below. Date of admission: 11/25/20 18:35 Discharge date: 11/28/20 Primary care physician: PCP No Consults: 11/25/20 16:47 Consult to Physician [CONS] Stat Comment: Consulting Provider: Cathryn Patricio Reason For Exam: Physician to Consult Discharge Meds Discharge Medications Home Medications aspirin 81 mg PO DAILY 11/25/20 [History Confirmed 11/25/20 Last Taken 11/11/20 09:00] atorvastatin 40 mg PO HS 11/25/20 [History Confirmed 11/25/20 Last Taken 21:00] carvedilol 6.25 mg PO BID 11/25/20 [History Confirmed 11/25/20 Last Taken 11/11/20] chlorthalidone 50 mg PO DAILY 11/25/20 [History Confirmed 11/25/20 Last Taken 11/11/20 09:00] losartan 50 mg PO DAILY 11/25/20 [History Confirmed 11/25/20 Last Taken 11/11/20 09:00] COURSE Hospital Course Hospital course: . Discharge diagnosis: Hypertensive urgency. Time Spent with Patient Time attestation: Total time spent providing and/or coordinating discharge services: EXAM Constitutional Vitals: Temp Pulse Resp BP Pulse Ox 97.7 F 75 21 139/104 96 11/28/20 10:01 11/28/20 10:01 11/28/20 10:01 11/28/20 10:01 11/28/20 10:01 Discharge Data Data Completed and Pending Labs on day of discharge: Labs from last 24 hours 11/28/20 04:51 Sodium 137 Potassium 3.2 L Chloride 97 Carbon Dioxide 29 Anion Gap 11.0 BUN 19 Creatinine 1.5 H GFR Calculation 57 Glucose 75 Uric Acid 11.4 H Calcium 8.4 L Phosphorus 4.4 Magnesium 2.0 Total Bilirubin 0.5 Direct Bilirubin 0.2 GGT 30 AST 25 ALT 28 Alkaline Phosphatase 98 Lactate Dehydrogenase 260 H Total Protein 6.3 Albumin 3.3 Globulin 3.0 Albumin/Globulin Ratio 1.1 Triglycerides 72 Preliminary micro results at discharge 11/25/20 15:14 Blood Culture - Preliminary Blood 11/25/20 15:09 Blood Culture - Preliminary Blood Discharge Plan Patient/Caregiver Discharge Instructions Activity: increase activity as tolerated Diet: Regular Diet Instructions: Heart Failure (GEN), Low-Sodium Diet (GEN), Hypertension (GEN) Activity Restrictions/Additional Instructions: This discharge packet is provided to you to help keep you informed about your care. We want to ensure you get everything you need when you go home. You will also be receiving a call from us in a few days to follow up with you and see how you are doing since your discharge. This gives us a chance to listen to any concerns you maybe experiencing since you were discharged or any additional needs you may have, as well as providing us feedback on your care experience. We strive to always provide excellent care and thank you for your feedback and for choosing [facility]. Prescriptions: Continued losartan 50 mg tablet 50 mg PO DAILY RF: 0 atorvastatin 40 mg tablet 40 mg PO HS RF: 0 carvedilol 6.25 mg tablet 6.25 mg PO BID RF: 0 chlorthalidone 50 mg tablet 50 mg PO DAILY RF: 0 aspirin 81 mg tablet,chewable 81 mg PO DAILY RF: 0 Follow Up Plan Follow up with: Nichole Curry DO [Physician] - 12/03/20 10:30 am (Please check in @ 10:15 This will be a one time appointment) No,PCP [Primary Care Provider] - Patient Disposition: Home, Self-Care Prognosis: Good Rehab Potential: Fair I certify that the patient requires SNF services: No Overall status at discharge: patient is progressing back to baseline Discharge Orders: Discharge Order (Routine); Ordered 11/28/20 Ordered By: Trevin PEDRO VTE Deep Vein Thrombosis/Pulmonary Embolism Present on Admission: No
== END 2020-11-28 13:00 | disposition home or self-care (01) | DRG 304 ==
LOC: ED 11:07 → ICU 18:35
PROVIDERS: ADMIT Internal Medicine; ATTEND Internal Medicine